=== PATIENT | female | born 1960 | race Hispanic/Latino ===

== ENCOUNTER 2018-02-16 21:18 | Emergency (ER) | payer SELFPAY ==
[2018-02-16] MEDS ORDERED: AZITHROMYCIN 250 MG TAB ONE (22:01)
[2018-02-16 22:19] LABS: Urine Blood NEGATIVE (NEG); Urine Glucose NEGATIVE (NEG); Urine Protein NEGATIVE (NEG); Urine pH 7.5 (5.0-7.0)
--- NOTE | 2018-02-16 22:24 | RAD REPORT ---
EXAM DESCRIPTION: RAD - Chest Pa And Lat (2 Views) - 02/16/2018 9:58 pm CLINICAL HISTORY: Cough and congestion. COMPARISON: None. FINDINGS: The lungs are clear. The heart is normal in size. No displaced fractures. IMPRESSION: No acute or concerning finding suspected.
--- NOTE | 2018-02-16 23:15 | ER ---
Nurse's Notes [facility] Name: Yoladna Godoy Age: 57 yrs Sex: Female : 1960 Arrival Date: 02/16/2018 Time: 21:23 Bed 27 Private MD: Diagnosis: Cough;Bronchitis, not specified as acute or chronic Presentation: 02/16 21:25 Presenting complaint: Patient states: Cold symptoms for 2-3 days. Transition of care: aj patient was not received from another setting of care. Onset of symptoms was February 12, 2018. Risk Assessment: Do you want to hurt yourself or someone else? Patient reports no desire to harm self or others. Care prior to arrival: None. 21:25 Method Of Arrival: Ambulatory 21:25 Acuity: RIRI 4 22:36 Initial Sepsis Screen: Does the patient meet any 2 criteria? No. Patient's initial ed1 sepsis screen is negative. Does the patient have a suspected source of infection? No. Patient's initial sepsis screen is negative. Triage Assessment: 21:26 General: Appears in no apparent distress. comfortable, ill, Behavior is calm, aj cooperative, appropriate for age. Pain: Denies pain. EENT: Reports nasal congestion nasal discharge. Neuro: Level of Consciousness is awake, alert, obeys commands, Oriented to person, place, time, situation, Appropriate for age. Respiratory: Reports cough that is Airway is patent Respiratory effort is even, unlabored, Respiratory pattern is regular, symmetrical, Breath sounds are clear bilaterally. Derm: Skin is intact, is healthy with good turgor, Skin is pink, warm \T\ dry. normal. Historical: - Allergies: 21:26 No Known Allergies; aj - Home Meds: 21:26 Adipex-P oral oral [Active]; aj - PMHx: 21:26 None; aj - PSHx: 21:26 ; Skin Graft; aj - Immunization history:: Adult Immunizations up to date. - Social history:: Smoking status: Patient uses tobacco products, denies chronic smoking, but will smoke occasionally. - Ebola Screening: : Patient negative for fever greater than or equal to 101.5 degrees Fahrenheit, and additional compatible Ebola Virus Disease symptoms Patient denies exposure to infectious person Patient denies travel to an Ebola-affected area in the 21 days before illness onset No symptoms or risks identified at this time. - Family history:: not pertinent. Screenin:29 Abuse screen: Denies threats or abuse. Denies injuries from another. Nutritional ed1 screening: No deficits noted. Tuberculosis screening: No symptoms or risk factors identified. Fall Risk None identified. Assessment: 22:36 Reassessment: Patient appears in no apparent distress at this time. No changes from ed1 previously documented assessment. Patient and/or family updated on plan of care and expected duration. Pain level reassessed. Patient is alert, oriented x 3, equal unlabored respirations, skin warm/dry/pink. Patient states symptoms have not improved. 23:21 Reassessment: Patient appears in no apparent distress at this time. No changes from ed1 previously documented assessment. Patient and/or family updated on plan of care and expected duration. Pain level reassessed. Patient is alert, oriented x 3, equal unlabored respirations, skin warm/dry/pink. Patient states symptoms have not improved. Vital Signs: 21:26 BP 167 / 95; Pulse 91; Resp 16; Temp 97.4; Pulse Ox 98% on R/A; Weight 81.65 kg; Height aj 5 ft. 2 in. (157.48 cm); 22:36 BP 164 / 83; Pulse 76; Resp 17; Pulse Ox 99% on R/A; Pain 6/10; ed1 23:21 BP 148 / 76; Pulse 83; Resp 16; Temp 98.6(O); Pulse Ox 99% on R/A; Pain 6/10; ed1 21:26 Body Mass Index 32.92 (81.65 kg, 157.48 cm) ED Course: 21:23 Patient arrived in ED. es 21:26 Triage completed. aj 21:26 Arm band placed on right wrist. Patient placed in an exam room. aj 21:29 Indiana Gibson LVN is Primary Nurse. ed1 21:29 Patient has correct armband on for positive identification. Bed in low position. Call ed1 light in reach. 21:35 Gilberto Neal MD is Attending Physician. mau 21:55 Patient moved to radiology via wheelchair. bb2 21:56 Chest Pa And Lat (2 Views) XRAY In Process Unspecified. EDMS 21:56 X-ray completed. Patient tolerated procedure well. mh1 21:57 Patient moved back from radiology. 1 23:21 No provider procedures requiring assistance completed. Patient did not have IV access ed1 during this emergency room visit. Administered Medications: 22:01 Drug: Zithromax 500 mg Route: PO; ed1 23:21 Follow up: Response: No adverse reaction ed1 Outcome: 23:14 Discharge ordered by MD. león 23:21 Discharged to home ambulatory. ed1 23:21 Condition: good 23:21 Discharge instructions given to patient, Instructed on discharge instructions, follow up and referral plans. medication usage, Demonstrated understanding of instructions, follow-up care, medications, Prescriptions given X 4. 23:23 Patient left the ED. ed1 Signatures: Dispatcher [employer] Litzy Dixon RN RN aj Anderson, Corey, MD MD cha Salyer, Edna es Harvey, Martha 1 Indiana Gibson, CLINICAL CARE MANAGER CLINICAL CARE MANAGER ed1 Amy Velazco 2
--- NOTE | 2018-02-16 23:15 | EDPHYS ---
Physician Documentation [facility] Name: Yolanda Godoy Age: 57 yrs Sex: Female : 1960 Arrival Date: 02/16/2018 Time: 21:23 Bed 27 Private MD: ED Physician Gilberto Neal HPI: 02/16 21:45 This 57 yrs old Female presents to ER via Ambulatory with complaints of Cough, mau Congestion, Fever, Eye Problem, Ear Pain. 21:45 The patient or guardian reports cough, that is intermittent, flu symptoms, arthralgias, mau low-grade fever, myalgias. Onset: The symptoms/episode began/occurred 2 day(s) ago. Severity of symptoms: At their worst the symptoms were mild, in the emergency department the symptoms are unchanged. Modifying factors: The symptoms are alleviated by nothing, the symptoms are aggravated by nothing. Associated signs and symptoms: The patient has no apparent associated signs or symptoms. The patient has not experienced similar symptoms in the past. Historical: - Allergies: 21:26 No Known Allergies; aj - Home Meds: 21:26 Adipex-P oral oral [Active]; aj - PMHx: 21:26 None; - PSHx: 21:26 ; Skin Graft; aj - Immunization history:: Adult Immunizations up to date. - Social history:: Smoking status: Patient uses tobacco products, denies chronic smoking, but will smoke occasionally. - Ebola Screening: : Patient negative for fever greater than or equal to 101.5 degrees Fahrenheit, and additional compatible Ebola Virus Disease symptoms Patient denies exposure to infectious person Patient denies travel to an Ebola-affected area in the 21 days before illness onset No symptoms or risks identified at this time. - Family history:: not pertinent. ROS: 21:45 Constitutional: Negative for fever, chills, and weight loss, Eyes: Negative for injury, mau pain, redness, and discharge, ENT: Negative for injury, pain, and discharge, Neck: Negative for injury, pain, and swelling, Cardiovascular: Negative for chest pain, palpitations, and edema, Abdomen/GI: Negative for abdominal pain, nausea, vomiting, diarrhea, and constipation, Back: Negative for injury and pain, : Negative for injury, bleeding, discharge, and swelling, MS/Extremity: Negative for injury and deformity, Skin: Negative for injury, rash, and discoloration, Neuro: Negative for headache, weakness, numbness, tingling, and seizure. 21:45 Respiratory: Positive for cough, shortness of breath. Exam: 21:45 Constitutional: This is a well developed, well nourished patient who is awake, alert, mau and in no acute distress. Head/Face: Normocephalic, atraumatic. Eyes: Pupils equal round and reactive to light, extra-ocular motions intact. Lids and lashes normal. Conjunctiva and sclera are non-icteric and not injected. Cornea within normal limits. Periorbital areas with no swelling, redness, or edema. ENT: Nares patent. No nasal discharge, no septal abnormalities noted. Tympanic membranes are normal and external auditory canals are clear. Oropharynx with no redness, swelling, or masses, exudates, or evidence of obstruction, uvula midline. Mucous membranes moist. Neck: Trachea midline, no thyromegaly or masses palpated, and no cervical lymphadenopathy. Supple, full range of motion without nuchal rigidity, or vertebral point tenderness. No Meningismus. Chest/axilla: Normal chest wall appearance and motion. Nontender with no deformity. No lesions are appreciated. Cardiovascular: Regular rate and rhythm with a normal S1 and S2. No gallops, murmurs, or rubs. Normal PMI, no JVD. No pulse deficits. Abdomen/GI: Soft, non-tender, with normal bowel sounds. No distension or tympany. No guarding or rebound. No evidence of tenderness throughout. Back: No spinal tenderness. No costovertebral tenderness. Full range of motion. Female : Normal external genitalia. Skin: Warm, dry with normal turgor. Normal color with no rashes, no lesions, and no evidence of cellulitis. 21:45 Respiratory: the patient does not display signs of respiratory distress, Respirations: normal, Breath sounds: bronchial sounds, rhonchi, that are mild. Vital Signs: 21:26 BP 167 / 95; Pulse 91; Resp 16; Temp 97.4; Pulse Ox 98% on R/A; Weight 81.65 kg; Height aj 5 ft. 2 in. (157.48 cm); 22:36 BP 164 / 83; Pulse 76; Resp 17; Pulse Ox 99% on R/A; Pain 6/10; ed1 23:21 BP 148 / 76; Pulse 83; Resp 16; Temp 98.6(O); Pulse Ox 99% on R/A; Pain 6/10; ed1 21:26 Body Mass Index 32.92 (81.65 kg, 157.48 cm) aj MDM: 21:35 Patient medically screened. [facility] 23:14 Data reviewed: vital signs, nurses notes, lab test result(s), radiologic studies. [facility] 02/16 21:45 Order name: Flu; Complete Time: 23:[address] [facility] 02/16 21:45 Order name: Urine Culture [facility] 02/16 21:45 Order name: Chest Pa And Lat (2 Views) XRAY; Complete Time: 23:[address] [facility] 02/16 22:00 Order name: Urine Dipstick--Ancillary (enter results); Complete Time: 23:13 ms Administered Medications: 22:01 Drug: Zithromax 500 mg Route: PO; ed1 23:21 Follow up: Response: No adverse reaction ed1 Disposition: 02/16/18 23:14 Discharged to Home. Impression: Cough, Bronchitis, not specified as acute or chronic. - Condition is Stable. - Discharge Instructions: Acute Bronchitis, Upper Respiratory Infection, Adult, Cool Mist Vaporizers, Cough, Adult, [id number], Cough, Adult. - Prescriptions for Cheratussin AC 10- 100 mg/5 mL Oral liquid - take 10 milliliter by ORAL route every 4 hours; 150 milliliter. Zithromax Z- Reji 250 mg Oral Tablet - take 1 tablet by ORAL route as directed for 5 days Day 1 - take two (2) tablets one time. Day 2, 3, 4 , 5 take one (1) tablet once daily.; 6 tablet. Medrol (Reji) 4 mg Oral Tablets, Dose Pack - take 1 tablet by ORAL route as directed - follow package instructions; 1 packet. Albuterol Sulfate 90 mcg/actuation - inhale 1-2 puff by INHALATION route every 4-6 hours; 1 Inhaler. - Medication Reconciliation Form, Thank You Letter, Antibiotic Education, Prescription Opioid Use, Work release form form. - Follow up: Private Physician; When: 2 - 3 days; Reason: Recheck today's complaints, Continuance of care, Re-evaluation by your physician. - Problem is new. - Symptoms have improved. Signatures: Dispatcher [facility] EULALIOOR Litzy Perales, Gilberto Jarrell RN, MD MD cha Riggs, Erika, HIGHWAY DESIGN ENGINEER HIGHWAY DESIGN ENGINEER ed1 Corrections: (The following items were deleted from the chart) 23:23 23:14 02/16/2018 23:14 Discharged to Home. Impression: Cough; Bronchitis, not specified ed1 as acute or chronic. Condition is Stable. Discharge Instructions: Acute Bronchitis, Upper Respiratory Infection, Adult, Cool Mist Vaporizers, Cough, Adult, [id number], Cough, Adult. Prescriptions for Cheratussin AC 10-100 mg/5 mL Oral liquid - take 10 milliliter by ORAL route every 4 hours; 150 milliliter, Zithromax Z-Reji 250 mg Oral Tablet - take 1 tablet by ORAL route as directed for 5 days Day 1 - take two (2) tablets one time. Day 2, 3, 4 , 5 take one (1) tablet once daily.; 6 tablet, Medrol (Reji) 4 mg Oral Tablets, Dose Pack - take 1 tablet by ORAL route as directed - follow package instructions; 1 packet, Albuterol Sulfate 90 mcg/actuation - inhale 1-2 puff by INHALATION route every 4-6 hours; 1 Inhaler. and Forms are Medication Reconciliation Form, Thank You Letter, Antibiotic Education, Prescription Opioid Use. Follow up: Private Physician; When: 2 - 3 days; Reason: Recheck today's complaints, Continuance of care, Re-evaluation by your physician. Problem is new. Symptoms have improved. mau
== END 2018-02-16 23:23 | disposition home or self-care (01) ==
LOC: ER 21:18
DX: J40 Bronchitis, not specified as acute or chronic (principal); Z72.0 Tobacco use
CPT/HCPCS: 71046; 81003; 87086; 87088; 87804; 99283